=== PATIENT | female | born 1980 | race Caucasian/White ===

== ENCOUNTER 2017-01-14 16:42 | Emergency (ER) | payer BC, OTHER ==
[2017-01-14 17:23] VITALS: BP 113/59; PULSE 92; RESP 18; TEMP 99.4
--- NOTE | 2017-01-14 18:04 | XR ---
EXAMINATION TYPE: XR shoulder complete LT DATE OF EXAM: 01/14/2017 COMPARISON: NONE HISTORY: Shoulder pain TECHNIQUE: 3 views FINDINGS: I see no fracture nor dislocation. Joint spaces are normal. Soft tissues appear normal. IMPRESSION: Negative left shoulder exam.
--- NOTE | 2017-01-14 18:38 | ED ---
Upper Extremity HPI - General Chief Complaint: Extremity Injury, Upper Stated Complaint: [facility]-Shoulder Pain Time Seen by Provider: 01/14/17 17:25 Source: patient Mode of arrival: ambulatory Limitations: no limitations - Related Data Home Medications Medication Instructions Recorded Confirmed ALPRAZolam [Xanax] 0.25 mg PO BID 01/14/17 01/14/17 Acyclovir [Zovirax] 400 mg PO DAILY PRN 01/14/17 01/14/17 Previous Rx's Medication Instructions Recorded Naproxen 500 mg PO BID #20 tablet 01/14/17 traMADol HCl [Ultram] 50 mg PO Q6H PRN #15 tab 01/14/17 Allergies Allergy/AdvReac Type Severity Reaction Status Date / Time No Known Allergies Allergy Verified 01/14/17 17:37 Review of Systems ROS Statement: Those systems with pertinent positive or pertinent negative responses have been documented in the HPI. ROS Other: All systems not noted in ROS Statement are negative. Past Medical History Past Medical History: No Reported History History of Any Multi-Drug Resistant Organisms: None Reported Additional Past Surgical History / Comment(s): ectopic Past Psychological History: Anxiety, Depression, PTSD Smoking Status: Current every day smoker Past Alcohol Use History: Occasional Past Drug Use History: None Reported General Exam Limitations: no limitations Course Vital Signs 01/14/17 17:20 Temperature 99.4 F Pulse Rate 92 Respiratory 18 Rate Blood Pressure 113/59 O2 Sat by Pulse 100 Oximetry Disposition Clinical Impression: Disorder of left rotator cuff Disposition: HOME SELF-CARE Condition: Good Additional Instructions: Patient is to rest and apply ice to the shoulder. Use the sling as needed to limit range of motion. Follow-up with orthopedics. Return to the emergency department if any alarming signs or symptoms occur. Prescriptions: Naproxen 500 mg PO BID #20 tablet traMADol HCl [Ultram] 50 mg PO Q6H PRN #15 tab PRN Reason: Pain Referrals: Kaleb Moscoso MD [Primary Care Provider] - 1-2 days Samir Nath MD [STAFF PHYSICIAN] - 1-2 days Time of Disposition: 18:37
== END 2017-01-14 18:56 | disposition home or self-care (01) ==
LOC: EC 16:42
DX: M75.102 Unspecified rotator cuff tear or rupture of left shoulder, not specified as traumatic (principal); F41.9 Anxiety disorder, unspecified; F17.200 Nicotine dependence, unspecified, uncomplicated; Z79.899 Other long term (current) drug therapy
CPT/HCPCS: 99283